=== PATIENT | female | born 1965 | race Caucasian/White ===

== ENCOUNTER 2016-08-16 18:48 | Emergency (ER) | payer MEDICAID ==
[2014-08-15 11:09] VITALS: BMI 36.4
[~2016-08-16 18:48] MED LIST: ADIPEX-P37.5 M1 PO; ADIPEX-P37.5 MG PO; ASPIRIN325 MG PO; ATIVAN0.5 MG PO; BUSPAR 15 MG TA15 MG PO; BUTALB-APAP-CA1 EACH PO; CELEXA40 MG PO; DEMEROL50 MG PO; DIABETA5 MG PO; ELIQUIS2.5 MG PO; GLUCOPHAGE1000 MG PO; HCTZ25 MG PO; HYDROCHLOROTHIA25 MG PO; HYDROCODONE-APA1 TAB PO; LANTUS INSULIN10 ML SC; LISINOPRIL2.5 MG PO; LISINOPRIL5 MG PO; LYRICA75 MG PO; NORCO 10/325 TA1 TA1 PO; PERCOCET 10/3251 TA1; PRILOSEC20 MG PO; SYNTHROID50 MCG PO; TOPIRAGEN100 MG PO; TRADJENTA5 MG PO; ULTRACET TABLET1 TAB PO; VISTARIL50 MG PO
[2016-08-16 19:44] LABS: BASOPHILS 0.2 % (0-2); EOSINOPHILS 1.8 % (0-7); HEMATOCRIT 42.1 % (36.0-48.0); HEMOGLOBIN 13.8 g/dL (12-16); IMMATURE GRANULOCYTES 0.3 % (0-5); LYMPHOCYTES 14.7 % (15-50); MCH 28.7 pg (26.0-34.0); MCHC 32.8 g/dL (31.0-37.0); MCV 87.5 fL (80.0-100.0); MEAN PLATELET VOLUME 11.1 fL (7.4-10.4); MONOCYTES 6.4 % (2-11); NEUTROPHILS 76.6 % (40-80); PLATELET COUNT 213 10x3/uL (130-400); RBC 4.81 10x6/uL (4.00-5.40); WBC 10.4 10x3/uL (4.8-10.8)
[2016-08-16 20:00] LABS: ALBUMIN 3.6 g/dL (3.4-5.0); ANION GAP 12.2 mmol/L (8-16); BILIRUBIN - TOTAL 0.61 mg/dL (0.2-1.3); CARBON DIOXIDE 29.3 mmol/L (21.0-32.0); CREATININE - SERUM 1.5 mg/dL (0.6-1.3); POTASSIUM - SERUM 3.5 mmol/L (3.5-5.1); PROTEIN - SERUM 8.1 g/dL (6.4-8.2)
[2016-08-16 20:10] LABS: APPEARANCE HAZY (CLEAR); BILIRUBIN NEGATIVE (NEGATIVE); COLOR YELLOW (YELLOW); GLUCOSE NEGATIVE (NEGATIVE); KETONE NEGATIVE (NEGATIVE); LEUKOCYTE ESTERASE NEGATIVE (NEGATIVE); NITRITE NEGATIVE (NEGATIVE); PROTEIN NEGATIVE (NEGATIVE); SPECIFIC GRAVITY 1.015 (1.005-1.020); UROBILINOGEN NORMAL (NORMAL)
== END 2016-08-16 22:05 | disposition home or self-care (01) ==
LOC: D.ER 18:48
PROVIDERS: Nurse Practitioner Family
DX: N20.0 Calculus of kidney (principal); R10.9 Unspecified abdominal pain; K21.9 Gastro-esophageal reflux disease without esophagitis; E03.9 Hypothyroidism, unspecified

== ENCOUNTER 2016-09-08 05:55 | Day surgery (SDC) | payer MEDICAID ==
[~2016-09-08] VITALS: Ht 167.6 cm; Wt 113.6 kg
--- NOTE | ~2016-09-08 | OP ---
PATIENT NAME: GLYNN DUMONT MEDICAL RECORD: [id number] :65 LOCATION:[facility] ADMISSION DATE: SURGEON: PAPA DUBOSE DO OPERATION DATE: 09/08/16 PROCEDURE: Esophagogastroduodenoscopy with biopsies. INDICATION: Dysphagia, heart burn, and nausea. SCOPE: Olympus video gastroscope. MEDICATIONS: Propofol 150 milligrams IV per anesthesia. ESTIMATED BLOOD LOSS: Minimal. COMPLICATIONS: None. FINDINGS: Informed consent was given. The patient was made comfortable with the above medication. After reaching an adequate level of sedation by slow IV push, the patient was placed on her left side. The endoscope was then advanced under direct visualization through the mouth to the second portion of the duodenum. The upper, middle, and lower thirds of the esophagus appeared normal without ulcerations, erosions or strictures. At the gastroesophageal junction there was mild evidence of LA class A reflux induced esophagitis. The endoscope was advanced beyond the gastroesophageal junction into the stomach where there was significant amount of food retention present. Some of this was aspirated through the endoscope, but there were food particles too large to suction making visualization of the stomach somewhat difficult. Retroflexion was performed with a normal appearing cardia and fundus. In the antrum and prepyloric region there was some erythema and granularity consistent with possible gastritis. Random biopsies were taken to submit for histology and to rule out Helicobacter-pylori. The endoscope was advanced beyond the pylorus and in the duodenum where the bulb and second portion of the duodenum appeared normal other than a fair amount of food products within the bowel. The endoscope was then withdrawn from the patient entirely. The patient tolerated the procedure well. There were no complications. IMPRESSIONS: 1. LA class A reflux induced esophagitis. 2. Food retention consistent with gastroparesis by both clinical symptoms and objective findings. 3. Erythema and granularity of the stomach consistent with gastritis, biopsies taken. PLAN/RECOMMENDATIONS: 1. Discharge home when recovery parameters are met. 2. Recommend a gastroparesis diet consisting of smaller more frequent meals. 3. Consider gastric emptying study versus trial of Reglan for one week to determine if this helps symptoms. 4. Barium esophagram regarding the dysphagia. 5. Continue Prilosec 40 milligrams daily. 6. Consider adding [id number] Zantac 150 milligrams by mouth daily at bedtime for breakthrough symptoms in the evening. OPERATIVE REPORT [id number] GLYNN DUMONT NATHAN A DO CC: [id number] DICTATION DATE: 09/08/16 1000 [employer] COMMUNICATIONS MANAGER: DM 09/08/16 1126 [facility] 09/08/16 [facility] [address] [place] [address]
[2016-09-08] MEDS ORDERED: PRINIVIL20 MG PO (06:35)
[2016-09-08] MEDS ORDERED: OMEPRAZOLE40 MG PO (06:39)
[2016-09-08] MEDS ORDERED: BUPROPION HCL150 M1 PO (06:41)
[2016-09-08] MEDS ORDERED: KLONOPIN1 MG PO (06:42)
[2016-09-08] MEDS ORDERED: LASIX40 MG PO (06:42)
[2016-09-08] MEDS ORDERED: ZOFRAN4 MG PO (06:43)
[2016-09-08] MEDS ORDERED: FLOMAX0.4 MG PO (06:44)
[2016-09-08 07:05] LABS: HEMATOCRIT 39.2 % (36.0-48.0); HEMOGLOBIN 12.9 g/dL (12-16); MCHC 32.9 g/dL (31.0-37.0); MCV 88.1 fL (80.0-100.0); MEAN PLATELET VOLUME 11.3 fL (7.4-10.4); RBC 4.45 10x6/uL (4.00-5.40); RDW 14.3 % (11.5-14.5); WBC 5.7 10x3/uL (4.8-10.8)
[2016-09-08 07:09] LABS: ANION GAP 13.5 mmol/L (8-16); CALCIUM 8.3 mg/dL (8.5-10.1); CARBON DIOXIDE 28.8 mmol/L (21.0-32.0); CREATININE - SERUM 1.4 mg/dL (0.6-1.3); POTASSIUM - SERUM 3.3 mmol/L (3.5-5.1)
[2016-09-08 07:29] VITALS: BP 110/64; Ht 167.6 cm; Wt 113.6 kg
[2016-09-08 07:48] LABS: HCG URINE NEGATIVE (NEGATIVE)
--- NOTE | 2016-09-08 08:37 | NUR ---
0825 WATER GIVEN PER PT REQUEST
--- NOTE | 2016-09-08 09:00 | NUR ---
0845 CHANGED BP CUFF TO RT ARM.
--- NOTE | 2016-09-08 09:23 | NUR ---
0920 PIV DC WITH CATHETER TIP INTACT [facility]
--- NOTE | 2016-09-08 09:27 | NUR ---
0920 WALKED PT OUT TO [facility] WITH GETTING THE CAR.
== END 2016-09-08 09:25 | disposition home or self-care (01) ==
LOC: D.OPS 05:55
PROVIDERS: Anesthesiology; Internal Medicine Gastroenterology
DX: K21.0 Gastro-esophageal reflux disease with esophagitis (principal); R13.10 Dysphagia, unspecified; R12 Heartburn; R11.0 Nausea; E03.9 Hypothyroidism, unspecified; I12.9 Hypertensive chronic kidney disease with stage 1 through stage 4 chronic kidney disease, or unspecified chronic kidney disease; E11.22 Type 2 diabetes mellitus with diabetic chronic kidney disease; N18.3 Chronic kidney disease, stage 3 (moderate); Z01.812 Encounter for preprocedural laboratory examination

== ENCOUNTER → 2016-09-10 08:12 | Outpatient (CLI) | payer MEDICAID ==
[2016-09-08 07:29] VITALS: BMI 40.4
[~2016-09-10 08:12] MED LIST changes: +BUPROPION HCL150 M1 PO; +FLOMAX0.4 MG PO; +KLONOPIN1 MG PO; +LASIX40 MG PO; +OMEPRAZOLE40 MG PO; +PRINIVIL20 MG PO; +ZOFRAN4 MG PO
== END | disposition home or self-care (01) ==
LOC: D.RAD 08:12
DX: R13.10 Dysphagia, unspecified (principal)

== ENCOUNTER → 2016-09-12 08:00 | Outpatient (CLI) | payer MEDICAID ==
[2016-09-08 07:29] VITALS: BMI 40.4
== END | disposition home or self-care (01) ==
LOC: D.NM 08:00
DX: R12 Heartburn (principal); R11.0 Nausea

== ENCOUNTER 2017-06-04 09:52 | Outpatient (CLI) | payer MEDICAID ==
[2016-09-08 07:29] VITALS: BMI 40.4
== END 2017-06-04 11:45 ==
LOC: D.OPS 09:52
DX: K21.9 Gastro-esophageal reflux disease without esophagitis (principal)

== ENCOUNTER → 2019-08-16 13:06 | Outpatient (CLI) | payer MEDICAID ==
[2016-09-08 07:29] VITALS: BMI 40.4
== END | disposition home or self-care (01) ==
LOC: D.LAB 13:00
PROVIDERS: ATTEND Family Medicine Adult Medicine
DX: J44.9 Chronic obstructive pulmonary disease, unspecified (principal)